=== PATIENT | male | born 1950 | race Caucasian/White ===

== ENCOUNTER 2023-10-07 09:08 | Outpatient (CLI) | payer OTHER, MEDICARE, BC ==
[2023-10-07 10:22] LABS: FREE T4 (FREE THYROXINE) 0.87 NG/DL (0.73-1.40); THYROID STIMULATING HORMONE 2.1 ulU/ml (0.34-4.50)
== END 2023-10-07 23:59 | disposition home or self-care (01) ==
LOC: RAD 09:08
PROVIDERS: ATTEND Chiropractor
DX: E03.9 Hypothyroidism, unspecified (principal)
CPT/HCPCS: 36415; 84439; 84443; 84481

== ENCOUNTER 2024-05-18 11:59 | Day surgery (SDC) | payer OTHER, MEDICARE, BC ==
[2024-05-18] VITALS (12 sets, daily range): BP systolic 119–130; BP diastolic 53–77; PULSE 53–59; RESP 16; TEMP 98.3; O2SAT 95–99
[~2024-05-18] VITALS: Ht 170.2 cm; Wt 90.4 kg
[2024-05-18] MEDS ORDERED: LEVO100T9 PO (12:41)
[2024-05-18] MEDS ORDERED: LABE300T4 PO ×2 (12:41→12:50)
[2024-05-18] MEDS ORDERED: NALO4SPR22 (12:41)
[2024-05-18] MEDS ORDERED: LISI40TA13 PO (12:41)
[2024-05-18] MEDS ORDERED: LYR75C PO (12:41)
[2024-05-18] MEDS ORDERED: OMEP40CA21 PO (12:41)
[2024-05-18] MEDS ORDERED: AMLO10TA PO (12:50)
[2024-05-18] MEDS ORDERED: HYDRALAZINE HCL PO (12:50)
[2024-05-18] MEDS ORDERED: HYDR-3972 PO (12:50)
[2024-05-18] MEDS ORDERED: ASPI-1265 PO (12:50)
[2024-05-18] MEDS ORDERED: ATOR20TA PO (12:50)
[2024-05-18] MEDS ORDERED: FURO-150 PO (12:50)
[2024-05-18] MEDS ORDERED: FERR-28 PO (12:50)
[2024-05-18] MEDS ORDERED: CYAN-116 (12:50)
[2024-05-18] MEDS: normal saline 1000ml 1,000 ML IV SCH (14:13)
[2024-05-18] MEDS: fentaNYL/PF 50MCG/1 ML 2ML syringe IV ONE (14:14)
[2024-05-18] MEDS: MIDAZolam 1mg/ml 10ml vial IV ONE (14:14)
== END 2024-05-18 14:20 | disposition home or self-care (01) ==
LOC: SSTAY O 11:59 → EDSTATUS 14:30
PROVIDERS: ATTEND Student in an Organized Health Care Education/Training Program
DX: I35.1 Nonrheumatic aortic (valve) insufficiency (principal); I25.10 Atherosclerotic heart disease of native coronary artery without angina pectoris; I12.9 Hypertensive chronic kidney disease with stage 1 through stage 4 chronic kidney disease, or unspecified chronic kidney disease; N18.9 Chronic kidney disease, unspecified; E03.9 Hypothyroidism, unspecified; Z85.46 Personal history of malignant neoplasm of prostate; Z79.82 Long term (current) use of aspirin; Z79.899 Other long term (current) drug therapy; Z95.5 Presence of coronary angioplasty implant and graft
CPT/HCPCS: 93312; 93325; J2250; J3010; J7030

== ENCOUNTER 2024-09-23 08:31 | Outpatient (CLI) | payer OTHER, MEDICARE, BC ==
[~2024-09-23] VITALS: Ht 163.2 cm; Wt 88.0 kg
[~2024-09-23 08:31] MED LIST: AMLO10TA PO; ASPI-1265 PO; ATOR20TA PO; CYAN-116; FERR-28 PO; FURO-150 PO; HYDR-3972 PO; HYDRALAZINE HCL PO; LABE300T4 PO; LEVO100T9 PO; LISI40TA20 PO; LYR75C PO; NALO4SPR22; OMEP40CA21 PO
[2024-09-23 08:59] LABS: ABG BASE EXCESS -3.2 mmol/L (-2.0-3.0); ABG HCO3 21.5 mmol/L (21.0-28.0); ABG OXYGEN SATURATION 94.2 % (94.0-98.0); ABG PCO2 (T) 37.6 mmHg (35.0-48.0); ABG PH (T) 7.375 (7.350-7.450); ABG PO2 (T) 72.9 mmHg (83.0-108.0); ALLEN'S TEST POSITIVE; FCOHb 0.3 % (0.5-1.5); FHHb 5.8 % (0.0-5.0); FIO2 21.0 mmHg/%; FMetHb 0.3 % (0.0-1.5); FO2Hb 93.6 % (94.0-98.0); MODE ROOM AIR; PATIENT TEMPERATURE 37.0; TOTAL HEMOGLOBIN 13.0 G/dl (13.5-17.5)
[2024-09-23] MEDS ORDERED: albuterol 2.5 MG/3 ML nebule NEB ONE (09:15)
[2024-09-23 09:47] VITALS: PULSE 53; RESP 16; O2SAT 95
--- NOTE | 2024-09-24 14:15 | PROCEDURE NOTE - Respiratory ---
Procedure Note-Respiratory Providers to Copies To 1: HANANE CHASE MD Procedure Name: This is a complete pulmonary function study dated September 23, 2024. Hemoglobin measurement was done as part of the study. A room air blood gas was also obtained from this patient on the same date. Spirometry measurements: The forced vital capacity is at the lower limit of normal. The FEV1 is in the normal range. The FEV1 ratio is slightly elevated. All of the measured flow rates are normal. Bronchodilator was not administered as part of the study. Lung volume measurements: All of the major lung volume determinations are normal. Lung diffusion measurement: The DLCO measurement is in the lower range of normal. It is noted that the hemoglobin measurement is normal. Airway resistance measurement: The airway resistance shows no elevation. Conclusion: Normal pulmonary function study. We have no previous studies for comparison. A blood gas was drawn from this patient while the patient was breathing room air. The blood pH is normal. The pCO2 is normal. There is mild reduction in the room air oxygen level at 72 mmHg. GABE LOPEZ MD Sep 24, 2024 14:15
== END 2024-09-23 23:59 | disposition home or self-care (01) ==
LOC: RT 08:31
PROVIDERS: ATTEND Surgery
DX: J98.4 Other disorders of lung (principal)
CPT/HCPCS: 36600; 82803; 85018; 94010; 94727; 94729; 94760

== ENCOUNTER 2024-10-22 06:03 | Inpatient (IN) | payer OTHER, MEDICARE, BC ==
[2024-10-12 11:53] LABS: MEAN PLATELET VOLUME 8.6 FL (7.4-10.4); PRE OP HEMATOCRIT 37.7 % (42.0-52.0); PRE OP HEMOGLOBIN 12.8 g/dL (14.0-17.9); PRE OP PLATELET COUNT 117 X10'3 (140-440); PRE OP WHITE BLOOD COUNT 6.3 10'3 (4.8-10.8); RED CELL DISTRIBUTION WIDTH 14.9 % (11.5-14.5)
[2024-10-12 12:04] LABS: PRE OP INR 1.1 INR; PRE OP PARTIAL THROMB. TIME 26.0 SECONDS (22-32); PRE OP PROTIME 11.0 SECONDS (9.0-12.0)
[2024-10-12 12:14] LABS: CREATININE 1.06 MG/DL (0.60-1.10); PRE OP ALT 17 U/L (30-65); PRE OP ANION GAP 6 (8-16); PRE OP AST 16 U/L (10-37); PRE OP BILIRUB, TOTAL 0.6 MG/DL (0.0-1.0); PRE OP GLUCOSE 87 MG/DL (70-104); PRE OP POTASSIUM 4.6 MMOL/L (3.4-5.1); PRE OP SODIUM 140 MMOL/L (135-145); TOTAL CARBON DIOXIDE 27.9 MMOL/L (24-32); eGFR 68 ML/MIN
--- NOTE | 2024-10-12 12:21 | RADIOLOGY REPORT ---
DI CHEST,TWO VIEWS INDICATION: PREOP TECHNIQUE: Two views of the chest COMPARISON: None FINDINGS/IMPRESSION: LUNGS: No pleural effusion, consolidation, or pneumothorax MEDIASTINUM: Mild cardiomegaly. Sternotomy wires. BONES: No acute osseous abnormality OTHER: Large sliding hiatal hernia
[~2024-10-22] VITALS: Ht 162.6 cm; Wt 86.2 kg
[~2024-10-22 06:03] MED LIST changes: +CHOL100046 PO; -CYAN-116; +DOCUMENT DATE & TIME OF BETA-BLOCKER PO ONE; -FERR-28 PO; -FURO-150 PO; -NALO4SPR22; +ceFOXitin sod/dextrose 2g/50ml 50 ML IV ONE; +ringers solution, lacted 1,000 ML IV SCH
[2024-10-22] MEDS: ceFOXitin sod/dextrose 2g/50ml 50 ML IV ONE (06:46)
[2024-10-22] MEDS: ringers solution, lacted 1,000 ML IV SCH ×2 (06:46→18:50)
[2024-10-22] MEDS: DOCUMENT DATE & TIME OF BETA-BLOCKER PO ONE (06:47)
[2024-10-22 06:52] VITALS: RESP 15; O2SAT 97
[2024-10-22] MEDS ORDERED: BUPIVAcaine 2.5mg/ml inj 50ml vial (contains preservative) ONE (06:53)
[2024-10-22 06:54] VITALS: BP 110/62; PULSE 54; RESP 15; TEMP 97.5; O2SAT 97
[2024-10-22] MEDS: HYDROcodone/acetaminophen 10/325mg tab PO ONE (11:47)
[2024-10-22 14:27] VITALS: BP 119/63; PULSE 51; RESP 15; O2SAT 97
[2024-10-22] MEDS ORDERED: midazolam 1 mg/ML 2ml injection ONE (17:12)
[2024-10-22] MEDS ORDERED: fentaNYL /PF 50mcg/ml 5ml ampule ONE ×2 (17:13→22:15)
[2024-10-22] MEDS ORDERED: rocuronium 10mg/ml inj IV ONE ×3 (17:13→20:25)
[2024-10-22] MEDS ORDERED: propofol inj 20 ML IV ONE (17:13)
[2024-10-22] MEDS ORDERED: dexamethasone sod phosphate 4mg/ml inj. ONE (17:28)
[2024-10-22] MEDS: BUPIVAcaine/PF 2.5 mg/ml (0.25%) 30ml vial IJ ONE (18:36)
[2024-10-22] MEDS ORDERED: HYDROmorphone/PF 0.2 MG/ML SYRINGE IV PRN ×2 (18:50)
[2024-10-22] MEDS ORDERED: labetalol 20mg/4ml (5mg/ml) syringe IV PRN (18:50)
[2024-10-22] MEDS ORDERED: hydrALAZINE 20mg/ml inj. IV PRN (18:50)
[2024-10-22] MEDS ORDERED: ondansetron/PF 4mg/2ml inj IV PRN (18:50)
[2024-10-22] MEDS ORDERED: acetaminophen 1,000mg/100ml IV 100 ML IV PRN (18:50)
[2024-10-22] MEDS ORDERED: acetaminophen 1,000mg/100ml IV 100 ML IV ONE (22:18)
[2024-10-22] MEDS ORDERED: albumin (Human) 5% 250ml 250 ML IV ONE (23:31)
[2024-10-22] MEDS ORDERED: glycopyrrolate 0.2mg/ml inj ONE (23:33)
--- NOTE | 2024-10-22 23:49 | OPERATIVE REPORT ---
Operative Report Providers to CC ~ Date of Procedure: Oct 22, 2024 Pre-Operative Diagnosis: type III hiatsl hernia Post-Operative Diagnosis SAME as PRE-Op Procedure Performed attempted robo repair hiatal hernia with conversion to open repair/g tube placement Surgeon: kylie rojo Anesthesiologist: Shiva Bernal Type of Anesthesia: General Findings: large hiatal hernia Estimated Blood Loss: 100 ml Specimen Removed: none HANANE CHASE MD Oct 22, 2024 23:49
[2024-10-22 23:57] VITALS: BP 127/84; PULSE 77; RESP 16; O2SAT 98
[2024-10-23] VITALS (31 sets, daily range): BP systolic 115–159; BP diastolic 61–88; PULSE 68–141; RESP 13–22; TEMP 97.9–98.6; O2SAT 92–98
[2024-10-23] MEDS ORDERED: ondansetron/PF 4mg/2ml inj ONE (00:07)
[2024-10-23] MEDS ORDERED: HYDROmorphone inj. 0.5 MG/0.5 ML DISP.SYRIN IV PRN (00:15)
[2024-10-23] MEDS: morphine 4 MG/ML inj SYRINge IV PRN (00:23)
[2024-10-23] MEDS: ceFOXitin 2GM-NS 100mL ADDvant 100 ML IV SCH (02:00)
--- NOTE | 2024-10-23 02:12 | RADIOLOGY REPORT ---
CHEST RADIOGRAPH Indication: POST-OP Technique: Single frontal view of the chest was obtained COMPARISON: DI CHEST,TWO VIEWS on DOS: 10/12/24 FINDINGS: Lines and Tubes: None Lungs: Increased prominence of the pulmonary vasculature. No focal consolidation. Pleura: No effusion. No pneumothorax. Cardiomediastinal contours: Cardiomegaly status post median sternotomy. Bones: Unremarkable IMPRESSION: 1. Cardiomegaly and diffuse increased prominence of the pulmonary vasculature.
[2024-10-23] MEDS: CEFOXITIN IV ONE (03:00)
[2024-10-23] MEDS: D5W IV ONE (03:00)
[2024-10-23] MEDS: HYDROmorphone inj. 0.5 MG/0.5 ML DISP.SYRIN IV PRN (03:30)
[2024-10-23 05:56] LABS: MEAN PLATELET VOLUME 9.2 FL (7.4-10.4); RED CELL DISTRIBUTION WIDTH 14.6 % (11.5-14.5)
[2024-10-23 06:03] LABS: CREATININE 1.95 MG/DL (0.60-1.10); PHOSPHORUS 4.7 MG/DL (2.3-4.5); TOTAL CARBON DIOXIDE 27.1 MMOL/L (24-32); eCRCL 27 ML/MIN; eGFR 34 ML/MIN
--- NOTE | 2024-10-23 06:40 | RADIOLOGY REPORT ---
EXAM: DI CHEST,SINGLE VIEW HISTORY: ptx COMPARISON: DI CHEST,SINGLE VIEW on DOS: 10/23/24, DI CHEST,TWO VIEWS on DOS: 10/12/24 TECHNIQUE: Portable upright AP view of the chest was performed. FINDINGS: There are mild bilateral lung base infiltrates and/or effusions. No pneumothorax. The heart is not en larged. There are Postoperative changes of median sternotomy. IMPRESSION: 1. Mild bilateral lung base infiltrates and/or effusions. This appearance may be due to atelectasis, CHF, and/or pneumonia. 2. Cardiomegaly and postoperative changes of the heart.
[2024-10-23] MEDS ORDERED: pantoprazole 40MG/NS 100ML BAG 100 ML IV SCH (08:00)
[2024-10-23] MEDS: ceFOXitin sod/dextrose 2g/50ml 50 ML IV SCH ×2 (08:40→16:26)
--- NOTE | 2024-10-23 08:46 | OPERATIVE REPORT ---
DATE OF SURGERY: 10/22/2024 DICTATING PHYSICIAN: Tulio Mohan MD PREOPERATIVE DIAGNOSIS: Type 2 hiatal hernia. POSTOPERATIVE DIAGNOSIS: Type 2 hiatal hernia. PROCEDURES PERFORMED: * Attempted robotic repair of large hiatal hernia with subsequent conversion to open. * G-tube placement. SURGEON: Tulio Mohan MD BOBBIN DOFFER: None. ANESTHESIA: General/Dr. Bernal. DRAINS: None. INDICATIONS FOR OPERATION: The patient is a 74-year-old male with large and symptomatic hiatal hernia. The stomach was up in the chest. The patient is taken to surgery for repair. INTRAOPERATIVE FINDINGS: The patient had an extremely large hiatal hernia with very redundant sac. After mobilization out of the sac out of the chest with a great deal of difficulty, it is unclear where the sac and esophagus stopped and started, so a decision was made for open repair. At the time of repair, the patient had a large sac which obscured the posterior portion of the left isacc. With open approach, the left was identified. G-tube was placed at the end of the procedure to confirm adequate reduction. DESCRIPTION OF PROCEDURE: The patient was placed supine on the operating room table. After induction of general anesthesia and placement of endotracheal tube, the abdomen was prepped and draped. A subumbilical incision was then made and a 12 port placed using open technique and pneumoperitoneum was begun by insufflation of CO2. Additional ports were placed in the abdomen in the usual fashion. After ports were placed, a #5 port was then placed in the left upper quadrant and retractor placed in the left lobe of the liver. Robot was then brought to the field. Camera port docked. Camera placed. Camera targeted. Two ports were then docked and instruments placed. Abdomen was explored. The patient had a large hiatal hernia, stomach in the chest. Reduction of the stomach into the abdominal cavity was quite difficult. Paraesophageal ligament was identified and peritoneum incised. The sac was mobilized out of the chest initially on the left side, approximately 1 cm left on the left isacc. Attention was then turned to the clipped and divided. Right isacc was identified. Given the large nature of the hernia and the difficulty dividing the sac on the right isacc. The sac was fully mobilized out of the chest. The esophagus was mobilized to the chest using blunt dissection. Attention was then placed around the esophagus to facilitate traction. Because of difficulty identifying the inferior portion of the left isacc as well as the difficulty with the sac, decision was made to open procedure. Pneumoperitoneum was evacuated and ports were removed. Self-retaining liver retractor was removed. retractor was placed. Esophagus was then fully mobilized and elevated from the left isacc. The left isacc was easily visualized. Sutures of pledgets were then used to reapproximate the crura. Upon completion of the repair, 1 fingertip inserted into the diaphragmatic hiatus. The abdomen was then copiously irrigated with large amount of antibiotic-containing solution. Pursestring sutures were then placed in the anterior wall of the stomach. G-tube was placed to the left upper quadrant and the pursestring sutures in the usual fashion. The sutures were then secured and the sutures were used to some of the anterior abdominal wall. Hemostasis was found to be adequate. After irrigation was performed, rectal fascia was closed with running suture of looped PDS. Port incisions closed in layers. The skin was closed with clips. Dressing was applied. The patient was transferred to recovery in stable condition. Tulio Mohan MD TID: [id number] RECEIPT: [id number] KENAN/ELEUTERIO/KAYLYNN
[2024-10-23] MEDS ORDERED: oxyCODONE/APAP 5-325mg tablet PO PRN (14:40)
--- NOTE | 2024-10-23 15:41 | PROGRESS NOTE ---
Progress Note Dictate Providers to CC CC: TOMAS SOSA MD ~ Progress Note: Subsequent surgical care on a 74-year-old gentleman who is postoperative day 1, status post robotic assisted laparoscopic converted to open repair of very large paraesophageal hernia Tolerating clear liquids Needs additional pain medication as he takes chronic pain medication at home Complains of nasal dryness Incision dressed and dry Feeding tube site clean and dry Continue clears until tomorrow Likely full liquid diet tomorrow Change to Percocet Curry nasal spray Antibiotic Ordered?: No Objective Vitals Vital Signs Date Time Temp Pulse Resp B/P (MAP) Pulse Ox O2 Delivery O2 Flow Rate FiO2 10/23/24 15:18 14 10/23/24 07:09 97.9 81 159/80 (106) 96 Room Air 10/23/24 06:19 3.0 Lab Results: 10/23/24 0518 10/23/24 0518 Coagulation Studies Laboratory Tests Test 10/12/24 11:35 Prothrombin Time 11.0 SECONDS (9.0-12.0) INR International Normalized Ratio 1.1 INR Activated Partial Thromboplast Time 26 SECONDS (22-32) TOMAS SOSA MD Oct 23, 2024 15:41
[2024-10-23] MEDS: ringers solution, lacted 1,000 ML IV SCH (16:58)
[2024-10-23] MEDS: salt irrigation nasal spray 45 ML SPRAY NS PRN (17:54)
[2024-10-24] VITALS (10 sets, daily range): BP systolic 96–145; BP diastolic 46–76; PULSE 72–88; RESP 17–36; TEMP 97.8–98.7; O2SAT 90–95
[2024-10-24] MEDS: levoTHYROXINE 100mcg tablet PO SCH (05:18)
[2024-10-24] MEDS ORDERED: non-formulary drug (Omeprazole (Prilosec) 1 CAP) PO SCH (07:30)
[2024-10-24 09:33] LABS: MEAN PLATELET VOLUME 9.6 FL (7.4-10.4); RED CELL DISTRIBUTION WIDTH 14.6 % (11.5-14.5)
[2024-10-24 09:48] LABS: CREATININE 1.18 MG/DL (0.60-1.10); TOTAL CARBON DIOXIDE 27.2 MMOL/L (24-32); eCRCL 45 ML/MIN; eGFR 60 ML/MIN
--- NOTE | 2024-10-24 12:46 | PROGRESS NOTE ---
Progress Note Dictate Providers to CC CC: TOMAS SOSA MD ~ Progress Note: Subsequent surgical care on a 74-year-old gentleman who is postoperative day 2, status post robotic assisted laparoscopic converted to open repair of very large paraesophageal hernia Tolerating clear liquids Looks better and no complaints today Incision dressed and dry Feeding tube site clean and dry; draining into a gravity bag Discontinue gravity bag Advance to a full liquid diet Encourage ambulation Continue Madrid as it was placed by Urology due to difficulty; may need outpatient voiding challenge versus removal before home Dr. Tulio Mohan returns tomorrow Antibiotic Ordered?: N/A Objective Vitals Vital Signs Date Time Temp Pulse Resp B/P (MAP) Pulse Ox O2 Delivery O2 Flow Rate FiO2 10/24/24 11:20 36 10/24/24 10:00 82 10/24/24 06:00 98.6 127/60 (82) 90 Nasal Cannula 2.0 Lab Results: 10/24/24 0822 10/24/24 0822 Coagulation Studies Laboratory Tests Test 10/12/24 11:35 Prothrombin Time 11.0 SECONDS (9.0-12.0) INR International Normalized Ratio 1.1 INR Activated Partial Thromboplast Time 26 SECONDS (22-32) TOMAS SOSA MD Oct 24, 2024 12:46
[2024-10-25] VITALS (11 sets, daily range): BP systolic 87–141; BP diastolic 43–65; PULSE 69–88; RESP 13–24; TEMP 96.9–98.9; O2SAT 90–94
--- NOTE | 2024-10-25 14:24 | PROGRESS NOTE ---
Progress Note ID Providers to CC ~ Progress Note Progress Note: complains of pain/vss/abd-nondistended/labs noted a/p 1. s/p repair hiatal hernia-slow progress/cont supportive care HANANE CHASE MD Oct 25, 2024 14:24
[2024-10-25] MEDS: enoxaparin 40mg/0.4ml syringe SUBCUT SCH (20:00)
[2024-10-26] VITALS (9 sets, daily range): BP systolic 109–124; BP diastolic 42–66; PULSE 69–88; RESP 12–22; TEMP 97–100.3; O2SAT 91–96
[2024-10-26 06:34] LABS: MEAN PLATELET VOLUME 9.5 FL (7.4-10.4); RED CELL DISTRIBUTION WIDTH 14.5 % (11.5-14.5)
[2024-10-26 06:46] LABS: CREATININE 1.32 MG/DL (0.60-1.10); TOTAL CARBON DIOXIDE 28.8 MMOL/L (24-32); eCRCL 40 ML/MIN; eGFR 53 ML/MIN
[2024-10-26] MEDS: cefoxitin sod inj 2,000 MG in normal saline 100ml IV soln 100 ML IV SCH (10:21)
--- NOTE | 2024-10-26 16:20 | PROGRESS NOTE ---
Progress Note ID Providers to CC ~ Progress Note Progress Note: complains of pain/vss abd-incision intact/labs noted a/p s/p repair hiatal hernia-slow progress/cont supportive care HANANE CHASE MD Oct 26, 2024 16:20
[2024-10-26] MEDS: pantoprazole 40mg Tablet.DR PO SCH (19:48)
[2024-10-27] VITALS (26 sets, daily range): BP systolic 84–132; BP diastolic 48–68; PULSE 64–150; RESP 14–25; TEMP 96.1–101.6; O2SAT 92–98
[2024-10-27] MEDS: normal saline 1000ML IV soln IVB ONE (01:58)
[2024-10-27] MEDS: amiodarone 150mg/dext, iso-os 100 ML IV ONE (02:00)
[2024-10-27 02:11] LABS: RED CELL DISTRIBUTION WIDTH 14.6 % (11.5-14.5)
[2024-10-27 02:13] LABS: MEAN PLATELET VOLUME 9.2 FL (7.4-10.4)
[2024-10-27] MEDS: amiodarone/D5 360MG/200ML BAG 200 ML IV SCH (02:15)
[2024-10-27 02:27] LABS: CREATININE 1.58 MG/DL (0.60-1.10); TOTAL CARBON DIOXIDE 26.4 MMOL/L (24-32); eCRCL 33 ML/MIN; eGFR 43 ML/MIN
[2024-10-27] MEDS ORDERED: potassium Cl 20 mEq SR tablet PO PRN ×2 (03:00)
[2024-10-27] MEDS ORDERED: magnesium sulf-water 4G/100mL 100 ML IV PRN ×2 (03:00→05:25)
[2024-10-27] MEDS ORDERED: magnesium sulf-water 2g/50mL 50 ML IV PRN ×2 (03:00→05:25)
[2024-10-27] MEDS: magnesium sulf-water 4G/100mL 100 ML IV ONE (03:13)
[2024-10-27] MEDS: albumin (Human) 5% 250ml 250 ML IV SCH (03:44)
[2024-10-27] MEDS ORDERED: potassium CL 10mEq/100ml bag 100 ML IV PRN (05:25)
[2024-10-27] MEDS ORDERED: potassium Cl 40MEQ/1/2NS 520ml 520 ML IV PRN (05:25)
[2024-10-27] MEDS ORDERED: potassium Cl 40MEQ/270ML bag 250 ML IV PRN (05:25)
[2024-10-27] MEDS ORDERED: potassium Cl 20mEq/100mL bag 100 ML IV PRN (05:25)
[2024-10-27] MEDS: K and/or MAG REPLACEMENT MC SCH (08:00)
[2024-10-27] MEDS: potassium Cl 20 mEq SR tablet PO PRN (08:30)
--- NOTE | 2024-10-27 10:17 | OPERATIVE REPORT ---
DATE OF SURGERY: 10/23/2024 DICTATING PHYSICIAN: Donte Serrano MD PROCEDURE NOTE PREOPROCEDURE DIAGNOSIS: Nursing staff unable to place Madrid catheter. POSTPROCEDURE DIAGNOSES: * Bladder neck contraction. * Urethral false passage. OPERATIONS PERFORMED: * Flexible cystoscopy. * Dilation of bladder neck contraction. * Madrid catheterization, complex. SURGEON: Donte Serrano MD INDICATIONS: A 74-year-old male undergoing operative intervention by Dr. Tulio Mohan. Nursing staff was unable to place a Madrid catheter preprocedurally and I was asked urgently to present. DESCRIPTION OF PROCEDURE: Standard prep and drape of the genitals was performed. The patient had blood at the meatus, so I suspected urethral false passage. Flexible cystoscopy was therefore performed and there was a small false passage in the typical location. In addition, there was a bladder neck contraction from his prior radiation and TURP. A wire was pushed through the neck of the bladder and coiled into the bladder itself. The cystoscope was then removed. A Ramone dilator was then advanced over a wire at size 12/18-Anguillan and dilated. This was followed by a 16-Anguillan Madrid catheter with a hole cut in the tip with drainage of about 300 mL of clear yellow urine. The operative procedure was then handed over to Dr. Mohan. The patient tolerated the procedure well. Donte Serrano MD TID: [id number] RECEIPT: [id number] PF/VUN
--- NOTE | 2024-10-27 11:26 | RADIOLOGY REPORT ---
CHEST RADIOGRAPH Indication: effusion Technique: Portable upright AP view of the chest was performed. Comparison: DI CHEST,SINGLE VIEW on DOS: 10/23/24, DI CHEST,SINGLE VIEW on DOS: 10/23/24, DI CHEST,TWO VIEWS on DOS: 10/12/24, DI CHEST,SINGLE VIEW on DOS: 10/23/24 FINDINGS: There are mild bilateral lung base infiltrates and/or effusions. No pneumothorax. The heart is not en larged. There are Postoperative changes of median sternotomy. IMPRESSION: 1. Mild bilateral lung base infiltrates and/or effusions. This appearance may be due to atelectasis, CHF, and/or pneumonia. 2. Cardiomegaly and postoperative changes of the heart.
[2024-10-27] MEDS: magnesium hydroxide 30ml (MOM) UD suspension PO ONE (11:38)
--- NOTE | 2024-10-27 17:14 | PROGRESS NOTE ---
Progress Note ID Providers to CC ~ Progress Note Progress Note: pain improving/vss/abd-min distention/labs noted a/p 1. s/p repair hiatla hernia-slow progress/cont amio-pt HANANE CHASE MD Oct 27, 2024 17:14
[2024-10-28] VITALS (32 sets, daily range): BP systolic 66–140; BP diastolic 25–79; PULSE 70–148; RESP 11–24; TEMP 96.9–99.7; O2SAT 88–98
[2024-10-28] MEDS: amiodarone 150mg/dext, iso-os 100 ML IV ONE (14:08)
[2024-10-28] MEDS: amiodarone/D5 360MG/200ML BAG 200 ML IV SCH (14:26)
[2024-10-28] MEDS: magnesium citrate 296ml oral solution PO ONE (15:27)
[2024-10-28] MEDS: digoxin 250mcg/ml 2ml ampule IV ONE ×2 (15:27→20:22)
[2024-10-28] MEDS: lactose-reduced food (Ensure Enlive) - 237ml bottle PO SCH (17:05)
--- NOTE | 2024-10-28 20:31 | PROGRESS NOTE ---
Progress Note ID Providers to CC ~ Progress Note Progress Note: pain improving/vss/abd-mild distention/labs noted a/p 1. s/p repair hiatal hernia-slow progress/cont amio-add dig HANANE CHASE MD Oct 28, 2024 20:31
[2024-10-29] VITALS (17 sets, daily range): BP systolic 132–158; BP diastolic 45–69; PULSE 69–86; RESP 12–24; TEMP 97–98.2; O2SAT 90–98
[2024-10-29] MEDS: digoxin 250mcg/ml 2ml ampule IV ONE (03:14)
[2024-10-29] MEDS: digoxin 250mcg (0.25mg) tablet PO SCH (08:30)
[2024-10-29] MEDS: heparin, porcine 5000 units/ml vial SQ SCH (08:31)
[2024-10-29 17:08] LABS: MEAN PLATELET VOLUME 8.8 FL (7.4-10.4); RED CELL DISTRIBUTION WIDTH 14.5 % (11.5-14.5)
[2024-10-29 17:21] LABS: CREATININE 1.25 MG/DL (0.60-1.10); TOTAL CARBON DIOXIDE 33.4 MMOL/L (24-32); eCRCL 42 ML/MIN; eGFR 56 ML/MIN
--- NOTE | 2024-10-29 20:42 | PROGRESS NOTE ---
Progress Note ID Providers to CC ~ Progress Note Progress Note: pain improving/sr/abd disternded a/p 1. s/p hiatal hernia repair-slow progress HANANE CHASE MD Oct 29, 2024 20:42
[2024-10-30] VITALS (7 sets, daily range): BP systolic 114–127; BP diastolic 43–59; PULSE 72–80; RESP 16–25; TEMP 97–99.1; O2SAT 95–98
--- NOTE | 2024-10-30 13:04 | PROGRESS NOTE ---
Progress Note ID Providers to CC ~ Progress Note Progress Note: asleep/vss/abd nondistended/labs pending a/p 1. s/p repair hiatal hernia-slow progress 2. svt-rate controlled with amio/dig needs ct chest abd pelvis in HANANE Cummings MD Oct 30, 2024 13:04
[2024-10-30] MEDS: diatr meglu/diatrizoate 30ml oral sol.-(3 dose) bottle PO SCH (22:30)
[2024-10-31] VITALS (9 sets, daily range): BP systolic 126–155; BP diastolic 54–73; PULSE 65–85; RESP 15–18; TEMP 96.9–98.8; O2SAT 94–100
[2024-10-31 07:47] LABS: MEAN PLATELET VOLUME 8.7 FL (7.4-10.4); RED CELL DISTRIBUTION WIDTH 14.3 % (11.5-14.5)
[2024-10-31 08:46] LABS: CREATININE 1.06 MG/DL (0.60-1.10); TOTAL CARBON DIOXIDE 34.1 MMOL/L (24-32); eCRCL 50 ML/MIN; eGFR 68 ML/MIN
[2024-10-31] MEDS ORDERED: iohexol 300mg/ml 100ml inj. ONE (11:30)
--- NOTE | 2024-10-31 13:38 | RADIOLOGY REPORT ---
CT CT CHEST ABDOMEN PELVIS W/ IV ORAL CONTRAST HISTORY: pain Comparison Study: None TECHNIQUE: Multidetector CT of the chest, abdomen and pelvis was performed from lower neck to pubic s ymphysis with the use of intravenous contrast. Axial, coronal and sagittal multiplanar reformats were performed by the technologist on a separate workstation. Radiation Dose : CTDI vol 28.74 mGy, DLP 2172.17 mGy*cm. Findings: Chest: Lungs: Bilateral lower lobe subsegmental atelectasis. Pleura: Trace bilateral pleural effusions. 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 Dilated pulmonary trunk and bilateral main pulmonary arteries. Severe coronary atherosclerosis versus stents. Mediastinum: Free fluid in the posterior mediastinum along the midesophagus. Soft tissues/Bones: Unremarkable Abdomen: Liver: Mild biliary ductal dilatation. Gallbladder: Cholecystectomy. Spleen: Unremarkable. Perisplenic free fluid. Pancreas: Unremarkable Adrenals: Unremarkable Kidneys: Unremarkable GI tract: Percutaneous gastrostomy tube terminates in the stomach. Mild inflammatory changes anterior to the stomach, just to the right of midline (axial images 20-43). : The urinary bladder is decompressed via Madrid catheter. Vasculature: Widespread aortic dissection. The bilateral renal, celiac, SMA, and JAMILA are supplied by the true lumen. Mild aortoiliac atherosclerosis. Lymphadenopathy: Absent Peritoneum: No ascites Musculoskeletal: Mild multilevel degenerative changes of the thoracolumbar spine. Soft tissues: Small left fat containing inguinal hernia. Unremarkable Impression: Chest: 1. 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 2. Paraesophageal free fluid, nonspecific. Abdomen: 1. Abdominal aortic dissection. The branches of the aorta are supplied by the true lumen. 2. Mild inflammatory changes anterior to the stomach, to the right of midline, may reflect a possible leak from the gastrostomy tube. No definite oral contrast within the fluid collection. An omental in farct is also in the differential. 3. Perisplenic free fluid, nonspecific. Critical Result: Aortic Dissection Findings discussed with Dr. Mohan at 10/31/2024 01:31 PM, and acknowledged receipt and understandin g of the findings.
[2024-10-31] MEDS: piperacillin/tazo 3.375gm/50ml 50 ML IV SCH (16:00)
--- NOTE | 2024-10-31 16:53 | PROGRESS NOTE ---
Progress Note ID Providers to CC ~ Progress Note Progress Note: Cardiothoracic surgery note Mr. Purdy is known to me. He is a very nice 74-year-old gentleman who is now 12 years status post repair of a type a aortic dissection. The graft was taken to the level of the innominate. He did well postoperatively and ask actually continued to do so. He denies any abdominal chest or back pain. He was in the hospital now for repair of a paraesophageal hernia. As part of his postoperative care he underwent a CT of the chest abdomen and pelvis. 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 His great vessels as well as his abdominal vessels all arise from the true lumen. The maximum transverse diameter is at the level of the innominate where it is approximately 5 cm. This has not significantly different from postoperative. His risk factors include hypertension. However given his asymptomatic nature as well as no evidence of distal ischemic issues, we do not recommend any intervention into this problem. We will continue to following with yearly CT scans. If he develops in the distal problems such as leg work GI ischemia or if his on replaced arch or descending thoracic aorta increase in size he may be referred for stent graft repair. Please refer him back to our of [facility] in approximately six months for further discussion and scheduling for his yearly CT. TOMASZ AUGUSTE III, MD Oct 31, 2024 16:53
--- NOTE | 2024-10-31 17:08 | PROGRESS NOTE ---
Progress Note ID Providers to CC ~ Progress Note Progress Note: pain improving/vss/abd-min distention/labs noted/ct reviewed and discussed with Dr. Alvarez a/p 1. s/p repair hiatal hernia-slow progress/dc planning-cont pt HANANE CHASE MD Oct 31, 2024 17:08
[2024-11-01] VITALS (12 sets, daily range): BP systolic 107–143; BP diastolic 43–61; PULSE 69–89; RESP 14–20; TEMP 97.2–99.1; O2SAT 92–100
[2024-11-01 11:18] LABS: MEAN PLATELET VOLUME 7.7 FL (7.4-10.4); RED CELL DISTRIBUTION WIDTH 14.7 % (11.5-14.5)
--- NOTE | 2024-11-01 15:09 | PROGRESS NOTE ---
Progress Note ID Providers to CC ~ Progress Note Progress Note: doing well/rehab friday HANANE CHASE MD Nov 01, 2024 15:09
[2024-11-02] VITALS (7 sets, daily range): BP systolic 95–128; BP diastolic 41–54; PULSE 61–90; RESP 13–18; TEMP 97.3–99.3; O2SAT 92–97
[2024-11-02 11:24] LABS: MEAN PLATELET VOLUME 8.7 FL (7.4-10.4); RED CELL DISTRIBUTION WIDTH 14.6 % (11.5-14.5)
[2024-11-02 12:07] LABS: BANDS% (MANUAL) 1.0 % (0-10); EOSINOPHILS % (MANUAL) 3.0 % (0-6); LYMPHOCYTES % (MANUAL) 6.0 % (21-51); METAMYLEOCYTES% (MANUAL) 5.0 % (0-0); MONOCYTES % (MANUAL) 7.0 % (2-12); NEUTROPHILS % (MANUAL) 78.0 % (42-75); PLATELET ESTIMATE NORMAL
[2024-11-02 12:33] LABS: UA COLLECTION TYPE FOLEY CATH
[2024-11-02 12:42] LABS: SQUAMOUS EPITHELIAL CELL,UR NONE SEEN /LPF (FEW)
--- NOTE | 2024-11-02 14:49 | RADIOLOGY REPORT ---
CHEST RADIOGRAPH Indication: right picc placement Technique: Single frontal view of the chest was obtained COMPARISON: DI CHEST,SINGLE VIEW on DOS: 10/27/24, DI CHEST,SINGLE VIEW on DOS: 10/23/24, DI CHEST,SINGLE VIEW on DOS: 10/23/24, DI CHEST,TWO VIEWS on DOS: 10/12/24 FINDINGS: Lines and Tubes: Right PICC in satisfactory position. Median sternotomy. Lungs: Congestion Pleura: No effusion. No pneumothorax. Cardiomediastinal contours: Cardiomegaly Bones: Unremarkable IMPRESSION: Increased interstital prominence. This may represent pulmonary vascular congestion and/or viral pneumonia. Clinical correlation advised.
--- NOTE | 2024-11-02 19:45 | PROGRESS NOTE ---
Progress Note ID Providers to CC ~ Progress Note Progress Note: pain ikmproving/vss/abd-min distention/labs noted a/p 1. s/p repair hiatal hernia-slow progress/rehab today HANANE CHASE MD Nov 02, 2024 19:45
== END 2024-11-02 17:55 | DRG 328 ==
LOC: PAS 06:03 → PCU 3S 10-23 00:59
PROVIDERS: ADMIT Surgery; ATTEND Surgery
PROC: 0BJT4ZZ Inspection of Diaphragm, Percutaneous Endoscopic Approach (ICD-10-PCS; 2024-10-22)
PROC: 8E0W4CZ Robotic Assisted Procedure of Trunk Region, Percutaneous Endoscopic Approach (ICD-10-PCS; 2024-10-22)
PROC: 0DH63UZ Insertion of Feeding Device into Stomach, Percutaneous Approach (ICD-10-PCS; 2024-10-22)
PROC: 0BQT0ZZ Repair Diaphragm, Open Approach (ICD-10-PCS; principal; 2024-10-22 17:06)
PROC: 0T7C8ZZ Dilation of Bladder Neck, Via Natural or Artificial Opening Endoscopic (ICD-10-PCS; 2024-10-23)
PROC: 0T9B80Z Drainage of Bladder with Drainage Device, Via Natural or Artificial Opening Endoscopic (ICD-10-PCS; 2024-10-23)
PROC: 5A09357 Assistance with Respiratory Ventilation, Less than 24 Consecutive Hours, Continuous Positive Airway Pressure (ICD-10-PCS; 2024-10-24)
PROC: 5A09357 Assistance with Respiratory Ventilation, Less than 24 Consecutive Hours, Continuous Positive Airway Pressure (ICD-10-PCS; 2024-10-26)
PROC: 5A0935A Assistance with Respiratory Ventilation, Less than 24 Consecutive Hours, High Flow/Velocity Cannula (ICD-10-PCS; 2024-10-26)
PROC: 5A0935A Assistance with Respiratory Ventilation, Less than 24 Consecutive Hours, High Flow/Velocity Cannula (ICD-10-PCS; 2024-10-28)
PROC: 05HY33Z Insertion of Infusion Device into Upper Vein, Percutaneous Approach (ICD-10-PCS; 2024-10-28)
PROC: B54MZZA Ultrasonography of Right Upper Extremity Veins, Guidance (ICD-10-PCS; 2024-10-28)
PROC: 5A0935A Assistance with Respiratory Ventilation, Less than 24 Consecutive Hours, High Flow/Velocity Cannula (ICD-10-PCS; 2024-10-29)
PROC: 5A0935A Assistance with Respiratory Ventilation, Less than 24 Consecutive Hours, High Flow/Velocity Cannula (ICD-10-PCS; 2024-10-30)
PROC: BW251ZZ Computerized Tomography (CT Scan) of Chest, Abdomen and Pelvis using Low Osmolar Contrast (ICD-10-PCS; 2024-10-31)
DX: K44.9 Diaphragmatic hernia without obstruction or gangrene (principal); N36.5 Urethral false passage; Z92.3 Personal history of irradiation; Z53.31 Laparoscopic surgical procedure converted to open procedure
CPT/HCPCS: 36415; 36569; 71045; 71046; 71260; 74177; 76942; 80048; 80053; 80162; 81001; 82948; 83605; 83735; 84100; 84132; 84443; 85007; 85025; 85610; 85730; 86885; 86900; 86901; 87040; 87081; 87088; 94660; 94668; 94760; 97116; 97161; 97530; A4215; A4314; A4615; A4618; A4620; A5200; A6253; A6258; A6449; A6590; B4087; C1751; C1758; C1781; G0378; J0131; J0282; J0690; J0694; J1100; J1160; J1171; J1644; J1650; J1938; J2250; J2270; J2405; J2470; J2543; J2704; J2710; J3010; J3475; J3490; J7040; J7120; J7121; P9045; Q9963; Q9967

== ENCOUNTER 2024-11-18 13:22 | Inpatient (IN) | payer OTHER, MEDICARE, BC ==
[~2024-11-18] VITALS: Ht 175.3 cm; Wt 79.1 kg
[~2024-11-18 13:22] MED LIST changes: -DOCUMENT DATE & TIME OF BETA-BLOCKER PO ONE; -ceFOXitin sod/dextrose 2g/50ml 50 ML IV ONE; -ringers solution, lacted 1,000 ML IV SCH
[2024-11-18 14:16] LABS: INR 1.1 INR
[2024-11-18 14:17] LABS: MEAN PLATELET VOLUME 7.6 FL (7.4-10.4); RED CELL DISTRIBUTION WIDTH 17.6 % (11.5-14.5)
[2024-11-18 14:19] LABS: CREATININE 1.08 MG/DL (0.60-1.10); ETHANOL < 10 MG/DL (<10); TOTAL CARBON DIOXIDE 31.4 MMOL/L (24-32); eCRCL 58 ML/MIN; eGFR 66 ML/MIN
[2024-11-18 14:26] LABS: LACTIC SEPSIS 2.1 MMOL/L (0.4-2.0)
[2024-11-18 14:27] LABS: LEUKOCYTE ESTERASE ,URINE MODERATE (Neg); NITRITES, URINE POSITIVE (Neg); OCCULT BLOOD,URINE MODERATE (Neg)
[2024-11-18 14:33] LABS: UA COLLECTION TYPE FOLEY CATH
[2024-11-18 14:35] LABS: SQUAMOUS EPITHELIAL CELL,UR FEW /LPF (FEW)
[2024-11-18 14:36] LABS: WBC CLUMPS,URINE FEW /HPF (NEGATIVE)
[2024-11-18 14:39] LABS: YEAST MODERATE /HPF (NEGATIVE)
--- NOTE | 2024-11-18 15:28 | Physician Documentation ---
History of Present Illness ~ Chief Complaint: ALOC Stated Complaint: ALTERED Time Seen by MD: 13:25 OK to notify your PCP?: Yes Source: patient, family Mode of Arrival: EMS, Stretcher Exam Limitations: other HPI Mr. Purdy is a 74 y/o male who presents to the ED for evaluation of an AMS. He was recently admitted to the hospital for repair of a large paraesophageal hernia. It was initially planned for Robotic approach but this was converted to open. He was discharged to the rehab with a RUE PICC line for ongoing antibiotics. He was sent here from the rehab to be evaluated for altered mental status. No report of trauma. He arrives today confused, but is able to answer basic questions. He cannot explain why he was sent here. is at bedside providing additional details. Medication Reconciliation Allergies: Coded Allergies: No Known Allergies (Unverified , 11/18/24) Scheduled Amlodipine Besylate (Amlodipine Besylate), 1 TABLET PO DAILY@1000, (Reported) Aspirin (Aspirin), 81 MG PO DAILY, (Reported) Atorvastatin Calcium* (Lipitor*), 1 TABLET PO HS, (Reported) Cholecalciferol (Vitamin D3) (Vitamin D3), 6,000 UNITS PO DAILY, (Reported) Labetalol Hcl (Labetalol Hcl), 1 TAB PO TID, (Reported) Levothyroxine Sodium (Levothyroxine Sodium), 1 TAB PO DAILY@0500, (Reported) Lisinopril* (Lisinopril*), 1 TAB PO DAILY@1000, (Reported) Omeprazole (Prilosec), 1 CAP PO BKF, (Reported) Pregabalin (LYRICA capsule), 2 CAP PO Q12H, (Reported) [Hydralazine Hcl], 10 MG PO QID, (Reported) Scheduled PRN Hydrocodone Bit/Acetaminophen (Hydrocodon-Acetaminophn 10-325 tablet), 1 TAB PO TID PRN for pain, (Reported) Physical Exam Vital Signs: Temperature: 100.8, Source: Oral, Heart Rate: 86, Respiratory Rate: 18, BP: 127/62, Pulse Oximetry: 94, Weight: 79.090 Oxygen Flow Rate: 2.0 Progress Results/Orders Results/Orders Orders - YEISON ARREOLA MD Cult Urine + [place] [address] (11/18/24 14:39) Ceftriaxone 2gm/D5w 50ml Bag (Rocephin 2 (11/18/24 15:25) Lactic,2hr (11/18/24 15:26) Completed Orders - YEISON ARREOLA MD BMP (11/18/24 13:41) Cbc/Diff (11/18/24 13:41) Ethanol (11/18/24 13:41) Hs Troponin I W Calculations (11/18/24 13:41) LA (11/18/24 13:41) Lipase (11/18/24 13:41) Liver Panel (11/18/24 13:41) MG (11/18/24 13:41) Pt Inr (11/18/24 13:41) Ammonia (11/18/24 13:41) Ua W/Microscopic, Cult If Ind (11/18/24 14:04) Vital Signs 11/18/24 11/18/24 11/18/24 13:29 13:40 14:38 Temp 100.8 Pulse 99 86 Resp 20 18 B/P (MAP) 129/57 127/62 (83) Pulse Ox 100 94 O2 Flow Rate 0 2.0 Laboratory Tests Test 11/18/24 13:56 11/18/24 14:04 White Blood Count 10.7 Red Blood Count 3.22 L Hemoglobin 10.0 L Hematocrit 29.6 L Mean Corpuscular Volume 92.0 Mean Corpuscular Hemoglobin 31.1 H Mean Corpuscular Hemoglobin Concent 33.8 Red Cell Distribution Width 17.6 H Platelet Count 218 Mean Platelet Volume 7.6 Neutrophils (%) (Auto) 61.2 Lymphocytes (%) (Auto) 27.5 Monocytes (%) (Auto) 10.6 Eosinophils (%) (Auto) 0.4 Basophils (%) (Auto) 0.3 Neutrophils # (Auto) 6.6 Lymphocytes # (Auto) 2.9 Monocytes # (Auto) 1.1 H Eosinophils # (Auto) 0.0 Basophils # (Auto) 0.0 CBC Comment Prothrombin Time 11.0 INR International Normalized Ratio 1.1 Coagulation Comments Sodium Level 133 L Potassium Level 4.7 Chloride Level 97 L Carbon Dioxide Level 31.4 Anion Gap 5 L Blood Urea Nitrogen 13 Creatinine 1.08 Estimated GFR/1.73 m2 66 BUN/Creatinine Ratio 12.0 Glucose Level 119 H Lactic Acid Level 2.1 H Calcium Level 8.8 Magnesium Level 2.2 Total Bilirubin 0.6 Direct Bilirubin 0.2 Aspartate Amino Transf (AST/SGOT) 22 Alanine Aminotransferase (ALT/SGPT) 21 Alkaline Phosphatase 115 Ammonia 18 Troponin I High Sensitivity 20 Total Protein 6.3 L Albumin 2.9 L Globulin 3.4 Albumin/Globulin Ratio 0.9 L Lipase 85 H Chemistry Comments Ethyl Alcohol Level < 10 Urine Specimen Description Madrid cath Urine Color Yellow Urine Clarity Cloudy Urine pH 7.5 Urine Specific [place] 1.020 Urine Protein 100 H Urine Glucose (UA) Negative Urine Ketones Negative Urine Occult Blood Moderate H Urine Nitrite Positive H Urine Bilirubin Negative Urine Urobilinogen 1.0 Urine Leukocyte Esterase Moderate H Urine RBC 20-50 Urine WBC 50-100 H Urine WBC Clumps Few Urine Squamous Epithelial Cells Few Urine Transitional Epithelial Cells Few Urine Bacteria 4+ Urine Yeast Moderate Urine Culture Indicated Indicated Volume Urine Centrifuged 10 ml Urine Comment Medical Decision Making Differential Dx:Considerations: Include: dehydration, encephalopathy, hypercalcemia, hypoglycemia, hypernatremia, hypoxia, CVA, mass lesion, subarachnoid hemorrhage, drug overdose, encephalopathy, ETOH intoxication, medication toxicity, infection - meningitis, infection - sepsis, infection - UTI, heart failure, renal failure, respiratory failure Additional Information While here in the ED, he remained hemodynamically normal with ABC's intact and in NAD. He is afebrile and nontoxic. I reviewed his EKG and it shows NSR and is without signs suggestive of acute myocardial injury or ischemia. TnI flat. UA with signs of an acute infection; culture pending. Started on IV Ceftriaxone. Lyte are unremarkable. Lactic slightly elevated at 2.1. Will admit for metabolic/sepsis-induced encephalopathy. Departure Disposition: 09 ADMITTED INPATIENT Admitted to Inpatient Unit: yes, to hospitalist Impression: Primary Impression: UTI (urinary tract infection) Condition: Stable Discharge Instructions: Altered Mental Status Referrals: NO PRIMARY CARE PROVIDER (PCP) Education Educated: Patient, Family Educated regarding: diagnosis, treatment Signature Scribe Signature: N/A Attestation: N/A YEISON ARREOLA MD Nov 18, 2024 15:28
[2024-11-18] MEDS: CefTRIAXone 2gm/D5W 50ml BAG 50 ML IV ONE (15:57)
[2024-11-18] MEDS ORDERED: morphine 4 MG/ML inj SYRINge IV PRN ×2 (16:40→20:15)
[2024-11-18] MEDS ORDERED: mag hydrox/Alum hydrox/simeth 30ml oral suspension PO PRN (16:40)
[2024-11-18] MEDS: normal saline 1000ml 1,000 ML IV SCH (16:53)
[2024-11-18] MEDS ORDERED: DIGO125T PO (16:55)
[2024-11-18] MEDS ORDERED: AMIO200T76 PO (16:59)
[2024-11-18] MEDS ORDERED: CHOL100025 PO (16:59)
[2024-11-18] MEDS ORDERED: FURO-150 PO (17:00)
--- NOTE | 2024-11-18 17:18 | ELECTROCARDIOGRAPH REPORT ---
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
[2024-11-18 17:38] LABS: PRO BRAIN NATRIURETIC PEPTIDE 292 PG/ML (0-450)
--- NOTE | 2024-11-18 18:30 | HISTORY AND PHYSICAL-Residence ---
History & Physical Providers to CC Resident Creating Document: COLLINSITZEL GARNICA, ANABEL ~ History of Present Illness Reason for Admit\Complaint: UTI History of Present Illness 74-year old male patient with past medical history hypertension, aortic dissection, hypothyroidism, sleep apnea, prostate cancer ,basal cell carcinoma presented to the ED with complaints of tremors and confusion. Patient's was present at the bedside during my examination most of the history was obtained from her as the patient was sleeping . According to his Patient was here last month for 12 days for hiatal hernia which was repaired by Dr. Mohan. He was placed on a Madrid's catheter immediately after his surgery and was Later taken to a rehab for his recovery. Patient has been having his Madrid's catheter in place for almost the past 4 weeks. Patient's reports that during his stay in the rehab, there was some issue with the Madrid's catheter, was not working, tried contacting the patient's urologist, but could not reach him. Patient was doing well until this morning when she noticed that the patient was shaky and a bit confused which was not normal for him. He had an appointment with Dr. Mohan today for removal of his beatris which were placed during his surgery. She took him to his office the morning, half of the beatris were removed, and brought him directly to the hospital from his office. Patient's also reports that the urine was foul-smelling and reddish in color. He also recorded high temperatures during his stay at the rehab for the last 2 days. She denies any other complaints of nausea, vomiting, shortness of breath, chest pain, burning micturition. Allergies: Coded Allergies: No Known Allergies (Unverified , 11/18/24) Home Medications Home Medications Active Reported Lasix* (Furosemide) 20 Mg Tablet 1 Tab PO BID Vitamin D (Cholecalciferol) 1,000 Unit Tablet 6 Tab PO DAILY 30 Days Cordarone (Amiodarone HCl) 200 Mg Tablet 200 Mg PO DAILY Lanoxin* (Digoxin) 125 Mcg Tablet 1 Tab PO DAILY 30 Days Vitamin D3 (Cholecalciferol (Vitamin D3)) 25 Mcg (1000 Unit) Capsule 6,000 Units PO DAILY Lisinopril* (Lisinopril) 40 Mg Tablet 1 Tab PO DAILY@1000 Lipitor* (Atorvastatin Calcium) 20 Mg Tablet 1 Tablet PO HS Amlodipine Besylate 10 Mg Tablet 1 Tablet PO DAILY@1000 [Hydralazine Hcl] 10 Mg PO QID Hydrocodon-Acetaminophn 10-325 tablet (Acetaminophen/Hydrocodone Bitart) 10mg- 325mg Tablet 1 Tab PO TID PRN Labetalol Hcl 300 Mg Tablet 1 Tab PO TID Levothyroxine Sodium 100 Mcg Tablet 1 Tab PO DAILY@0500 Prilosec (Omeprazole) 40 Mg Capsule 1 Cap PO BKF LYRICA capsule (Pregabalin) 75 Mg Capsule 2 Cap PO Q12H Aspirin 81 Mg Tab.chew 81 Mg PO DAILY Past Medical History Past Medical History Hypertension Aortic dissection-2012 Basal cell carcinoma-[employer] area Sleep apnea-currently on CPAP Hypothyroidism Prostate cancer-2014, underwent radiation currently in remission Past Surgical History Surgical History Comment Paraesophageal hernia Cholecystectomy TURP for prostate Past Social History Social History Comment Patient used to drink alcohol socially for 50 years, before he stopped drinking completely 5 years ago. Patient quit smoking at the age of 40, smoked for 20 years before that 1 pack per day Patient lives at home with his . 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 PCP Radha Whalen at [place] [employer] [facility]. Romelia PIMENTEL Constitutional: Reports: No headache, No chills, fever, malaise Eyes: Reports: No redness, tearing ENT: Reports: no symptoms reported Respiratory: Reports: Reports no cough, shortness of breath, wheezing Cardiovascular: Reports: Reports no chest pain Gastrointestinal: Reports: Reports no nausea , vomiting Genitourinary: Reports: No symptoms reported male Genitalia: Reports: No symptoms reported Neurological: Reports: No Symptoms reported Musculoskeletal: Reports: no symptoms reported Integumentary: Reports: no symptoms reported Allergic/Immunologic: Reports: no symptoms reported Hematologic/Lymphatic: Reports: no symptoms reported Psychiatric: Reports: no symptoms reported Exam Vitals: Vital Signs Date Time Temp Pulse Resp B/P (MAP) Pulse Ox O2 Delivery O2 Flow Rate FiO2 11/18/24 18:09 71 16 117/52 (73) 95 0 11/18/24 13:29 100.8 General: Awake , alert, and oriented x4,not in apparent distress HEENT: Atraumatic, normocephalic, EOMI, anicteric sclera. Neck: Trachea midline. Supple, full range of motion, no JVD Cardiac: Regular rhythm, regular rate with no murmurs all over the precordium. Respiratory: Normal vesicular breath sounds. No wheeze, Creps heard Gastrointestinal: Abdomen symmetric, slightly distended, patient's center of abdomen covered with a plaster due to surgery for hiatal hernia repair. Has a G-tube in place. Musculoskeletal: No extremity edema noted Neurological: Patient cooperative, Skin: Warm and dry Diagnostic Data Last Recorded Lab Results: 11/18/24 1356 11/18/24 1356 Diagnostic Data: Laboratory Tests Test 11/18/24 13:56 Prothrombin Time 11.0 SECONDS (9.0-12.0) INR International Normalized Ratio 1.1 INR Coagulation Comments Advance Care Planning Advanced Care plannin - 30 Minutes (Full code) Additional Plan Assessment-74 year old male presented to the ED with complaints of confusion and tremors since this morning. Acute metabolic encephalopathy Likely due to underlying UTI due to chronic Madrid's catheter placement Patient does not meet SIRS criteria WBC count normal-10.7, RR-18, HR- 71, TEMP-100.8 Electrolytes normal except for mild hyponatremia Glucose normal-119 Lactic acid-initially slightly increased 2.1, got back to normal- 1.4 Creatinine-1.08. Urine analysis positive for occult blood, nitrite, leukocyte esterase, RBCs20- 50, [id number], bacteria-4+ Following up with urine cultures. Patient started on ceftriaxone 1 g IV daily Patient on fluids NS 100 cc/hour. Patient was placed on Madrid's catheter after his surgery for hiatal hernia last month, due to his history of prostate cancer and multiple strictures in his bladder, it is difficult to place Madrid's in him, due to which urology will be consulted in the morning for change in his Madrid's catheter. Mild hyponatremia- Na-133 Continue to monitor his labs. Normocytic anemia- Hb-10.0, MCV-92 Follow-up with iron studies. code Status: full code Line/tube: PIV DVT prophylaxis: sq Heparin Nutrition: Regular diet PT: Yes Itzel Reddivari PGY-1 Date of Service: Nov 18, 2024 Billing Provider: CHRISTIN FUENTES MD Common Visit Codes: 23217-[id number] INP/OBS CARE (HIGH) Secondary Visit Codes: 55045-NKKOWTAY CARE PLAN 30 MINUTES REDDIVARI,ITZEL, RES Nov 18, 2024 18:30 CHRISTIN FUENTES MD Nov 20, 2024 09:47
[2024-11-18 19:25] VITALS: BP 138/61; RESP 19; TEMP 98.4; O2SAT 93
[2024-11-18 20:00] VITALS: RESP 16; O2SAT 96
[2024-11-18 20:09] LABS: CHOL/HDL RATIO 3.6 (0.00-4.99); LDL CHOLESTEROL 53 MG/DL (50-100)
[2024-11-18] MEDS ORDERED: ondansetron/PF 4mg/2ml inj IV PRN (20:19)
[2024-11-18] MEDS: morphine 4 MG/ML inj SYRINge IV PRN (20:25)
[2024-11-18 20:47] LABS: % IRON SATURATION 8 % (11-46)
[2024-11-18] MEDS: docusate sod 100mg capsule PO SCH (20:57)
[2024-11-18 22:00] VITALS: BP 134/55; PULSE 80; RESP 16; TEMP 97.9; O2SAT 96
[2024-11-19] MEDS: NYSTATIN CREAM - 30GM TUBE TP SCH
[2024-11-19] MEDS: oxyCODONE IR 5mg (immed. release) tablet PO PRN (00:59)
[2024-11-19] MEDS: levoTHYROXINE 100mcg tablet PO SCH (05:03)
[2024-11-19 05:28] LABS: MEAN PLATELET VOLUME 7.8 FL (7.4-10.4); RED CELL DISTRIBUTION WIDTH 17.0 % (11.5-14.5)
[2024-11-19 06:00] VITALS: BP 109/46; PULSE 65; RESP 15; TEMP 97.9; O2SAT 96
[2024-11-19 06:03] LABS: CREATININE 0.79 MG/DL (0.60-1.10); TOTAL CARBON DIOXIDE 30.6 MMOL/L (24-32); eCRCL 80 ML/MIN; eGFR > 90 ML/MIN
[2024-11-19] MEDS ORDERED: CHOLECALCIFEROL PO SCH (08:00)
[2024-11-19] MEDS: pantoprazole 40mg Tablet.DR PO SCH (08:45)
[2024-11-19] MEDS: cholecalciferol (vitamin D3) 1,000 unit (25mcg) tablet PO SCH (08:49)
[2024-11-19] MEDS: CefTRIAXone/D5W-Rocephin 1gm 50 ML IV SCH (08:52)
[2024-11-19 10:00] VITALS: BP 110/50; PULSE 63; RESP 18; TEMP 97; O2SAT 98
--- NOTE | 2024-11-19 12:39 | PROGRESS NOTE- Residence ---
Progress Note - Resident Providers to CC Resident Creating Document: ITZEL BAUTISTA RES ~ Antibiotic Timeout Antibiotic Ordered?: Yes Subjective Patient was seen and examined at the bedside today. He is well oriented to time place and person, not in confusion. Does not have any other complaints. No acute overnight events reported. Objective Vital Signs Date Time Temp Pulse Resp B/P (MAP) Pulse Ox O2 Delivery O2 Flow Rate FiO2 11/19/24 10:00 97.0 63 18 110/50 (70) 98 Nasal Cannula 3.0 11/18/24 20:00 21 Result Diagram: 11/19/24 0510 11/19/24 0510 Awake , alert, and oriented x4,not in apparent distress HEENT: Atraumatic, normocephalic, EOMI, anicteric sclera. Neck: Trachea midline. Supple, full range of motion, no JVD Cardiac: Regular rhythm, regular rate with no murmurs all over the precordium. Respiratory: Normal vesicular breath sounds. No wheeze, Creps heard Gastrointestinal: Abdomen symmetric, slightly distended, patient's center of abdomen covered with a plaster due to surgery for hiatal hernia repair. Has a G-tube in place. Musculoskeletal: No extremity edema noted Neurological: Patient cooperative, Skin: Warm and dry Coagulation Studies Laboratory Tests Test 11/18/24 13:56 Prothrombin Time 11.0 SECONDS (9.0-12.0) INR International Normalized Ratio 1.1 INR Coagulation Comments Plan Plan Acute metabolic encephalopathy resolved Likely due to underlying UTI -being treated with antibiotics due to chronic Madrid's catheter placement Patient does not meet SIRS criteria, sepsis ruled out WBC count normal-8.1, RR-18, HR- 63, TEMP-97.9 Electrolytes normal. Glucose normal-109 Lactic acid-initially slightly increased 2.1, got back to normal- 1.4 Creatinine-1.08. Urine analysis positive for occult blood, nitrite, leukocyte esterase, RBCs20- 50, [id number], bacteria-4+ Urine cultures grow Gram-negative rods and Gram-positive cocci, patient currently being treated with ceftriaxone 1 g IV daily. Patient on fluids NS 100 cc/hour. Needs PT evaluation. Patient was placed on Madrid's catheter after his surgery for hiatal hernia last month, due to his history of prostate cancer and multiple strictures in his bladder, it is difficult to place Madrid's in him, we spoke to Dr. Serrano urologist who will see the patient and see if Madrid's catheter replacement is required or not. Mild hyponatremia resolved Na-136 Continue to monitor his labs. Normocytic anemia- Hb-10.0, MCV-92 Iron panel shows- Fe-19, ferritin-147, [id number] anemia of chronic disease code Status: full code Line/tube: PIV DVT prophylaxis: sq Heparin Nutrition: Regular diet PT: Yes Itzel Bautista PGY-1 Date of Service: Nov 19, 2024 Billing Provider: CHRISTIN FUENTES MD Common Visit Codes: [id number] INP/OBS CARE(HIGH) ITZEL BAUTISTA, RES Nov 19, 2024 12:39 CHRISTIN FUENTES MD Nov 20, 2024 09:48
[2024-11-19 18:00] VITALS: BP 117/44; PULSE 76; RESP 16; TEMP 99; O2SAT 96
[2024-11-20 06:00] VITALS: BP 126/58; PULSE 69; RESP 18; TEMP 98.1; O2SAT 96
[2024-11-20 06:30] LABS: MEAN PLATELET VOLUME 8.3 FL (7.4-10.4); RED CELL DISTRIBUTION WIDTH 17.0 % (11.5-14.5)
[2024-11-20 06:36] LABS: CREATININE 0.79 MG/DL (0.60-1.10); TOTAL CARBON DIOXIDE 31.3 MMOL/L (24-32); eCRCL 80 ML/MIN; eGFR > 90 ML/MIN
[2024-11-20] MEDS: magnesium hydroxide 30ml (MOM) UD suspension PO PRN (09:12)
[2024-11-20 10:00] VITALS: BP 127/63; PULSE 83; RESP 15; TEMP 97.5; O2SAT 97
[2024-11-20 11:00] VITALS: RESP 12
--- NOTE | 2024-11-20 11:50 | PROGRESS NOTE ---
Progress Note ID Providers to CC ~ Progress Note Progress Note: no surgical issues-call if needed HANANE CHASE MD Nov 20, 2024 11:50
[2024-11-20] MEDS ORDERED: LEVO-65 PO (12:55)
--- NOTE | 2024-11-20 16:22 | DISCHARGE SUMMARY-Residence ---
Discharge Summary Providers to CC Resident Creating Document: ITZEL VARGAS, RES ~ Discharge Summary Admission Diagnosis: uti, encephalopathy Hospital Course DATE OF ADMISSION: 11/18/24 DATE OF DISCHARGE:11/20/24 Discharge Diagnosis\Comment: uti Operations\Procedures: None Consultants: Dr. Serrano Complications: None Condition on DC: Stable New Medications: Levofloxacin (Levofloxacin) 500 Mg Tablet 500 MG PO DAILY, #7 TAB Continued Medications: Amiodarone Hcl (Cordarone) 200 Mg Tablet 200 MG PO DAILY, TAB Amlodipine Besylate (Amlodipine Besylate) 10 Mg Tablet 1 TABLET PO DAILY@1000, TABLET Aspirin (Aspirin) 81 Mg Tab.chew 81 MG PO DAILY Atorvastatin Calcium* (Lipitor*) 20 Mg Tablet 1 TABLET PO HS Cholecalciferol (Vitamin D3) (Vitamin D3) 25 Mcg (1000 Unit) Capsule 6000 UNITS PO DAILY Digoxin* (Lanoxin*) 125 Mcg Tablet 1 TAB PO DAILY for 30 Days, #30 TAB Furosemide* (Lasix*) 20 Mg Tablet 1 TAB PO BID, TAB [Hydralazine Hcl] () 10 MG PO QID Hydrocodone Bit/Acetaminophen (Hydrocodon-Acetaminophn 10-325 tablet) 10mg- 325mg Tablet 1 TAB PO TID PRN for pain Labetalol Hcl (Labetalol Hcl) 300 Mg Tablet 1 TAB PO TID Levothyroxine Sodium (Levothyroxine Sodium) 100 Mcg Tablet 1 TAB PO DAILY@0500 Lisinopril* (Lisinopril*) 40 Mg Tablet 1 TAB PO DAILY@1000 Omeprazole (Prilosec) 40 Mg Capsule 1 CAP PO BKF Pregabalin (LYRICA capsule) 75 Mg Capsule 2 CAP PO Q12H for NERVE PAIN Discharge Summary: 74-year old male patient with past medical history hypertension, aortic diss ection, hypothyroidism, sleep apnea, prostate cancer ,basal cell carcinoma presented to the ED with complaints of tremors and confusion. . According to his Patient was here last month for 12 days for hiatal hernia which was repaired by Dr. Mohan. He was placed on a Madrid's catheter immediately after his surgery and was Later taken to a rehab for his recovery. Patient has been having his Madrid's catheter in place for almost the past 4 weeks. Patient's reports that during his stay in the rehab, there was some issue with the Madrid's catheter, was not working, tried contacting the patient's urologist, but could not reach him. Patient was doing well, when on the she noticed that the patient was shaky and a bit confused which was not normal for him. He had an appointment with Dr. Mohan on the same day for removal of his beatris which were placed during his surgery. She took him to his office the morning, half of the beatris were removed, and brought him directly to the hospital from his office. Patient's also reports that the urine was foul-smelling and reddish in color. He also recorded high temperatures during his stay at the rehab for the last 2 days Course during the hospital stay- Patient was admitted to the hospital his vitals were stable, did not meet criteria for SIRS. At the time of the examination patient was well oriented, not in confusion. All his electrolytes were normal except for mild hyponatremia. Glucose on admission was 119. Take acid initially was slightly high 2.1 later got back to normal 1.4. Creatinine was 1.08. Urine analysis was positive for occult blood, nitrite, leukocyte esterase, RBCs 20-50, WBCs 50-100, bacteria 4+ for which patient was started on ceftriaxone 1 g IV daily and fluids NS 100 cc/hour. Patient was placed on Madrid's catheter after his surgery for hiatal hernia last month, due to his history of prostate cancer and multiple strictures in his bladder it was difficult to place Madrid's in him due to which urology Dr. Mcintyre was consulted and informed about it, was asked to not replace the catheter during his hospital stay and recommended the patient to follow up outpatient at his office. His urine culture was positive for Enterobacter aerogenes and Enterococcus faecalis, according to his sensitivity results he was decided to be discharged on Levoquin . Over the course of his stay in the hospital, the patient improved significantly, was stable at the time of discharge. Laboratory Tests Test 11/18/24 20:00 11/19/24 05:10 11/20/24 00:05 11/20/24 05:00 Iron Level 19 UG/DL Total Iron Binding Capacity 230 UG/DL Percent Iron Saturation 8 % White Blood Count 8.1 X10'3 6.1 X10'3 Red Blood Count 2.80 X10'6 2.84 X10'6 Hemoglobin 8.6 g/dl 8.8 g/dl Hematocrit 26.0 % 26.1 % Mean Corpuscular Volume 92.6 FL 91.9 FL Mean Corpuscular Hemoglobin 30.8 PG 31.0 PG Mean Corpuscular Hemoglobin Concent 33.3 g/dL 33.7 g/dL Red Cell Distribution Width 17.0 % 17.0 % Platelet Count 204 X10'3 179 X10'3 Mean Platelet Volume 7.8 FL 8.3 FL Neutrophils (%) (Auto) 48.9 % 44.3 % Lymphocytes (%) (Auto) 35.9 % 39.1 % Monocytes (%) (Auto) 12.4 % 9.9 % Eosinophils (%) (Auto) 2.7 % 6.4 % Basophils (%) (Auto) 0.1 % 0.3 % Neutrophils # (Auto) 4.0 X10'3 2.7 X10'3 Lymphocytes # (Auto) 2.9 X10'3 2.4 X10'3 Monocytes # (Auto) 1.0 X10'3 0.6 X10'3 Eosinophils # (Auto) 0.2 X10'3 0.4 X10'3 Basophils # (Auto) 0.0 X10'3 0.0 X10'3 CBC Comment Sodium Level 136 MMOL/L 138 MMOL/L Potassium Level 4.3 MMOL/L 4.2 MMOL/L Chloride Level 101 MMOL/L 104 MMOL/L Carbon Dioxide Level 30.6 MMOL/L 31.3 MMOL/L Anion Gap 4 3 Blood Urea Nitrogen 11 MG/DL 7 MG/DL Creatinine 0.79 MG/DL 0.79 MG/DL Estimated GFR/1.73 m2 > 90 ML/MIN > 90 ML/MIN BUN/Creatinine Ratio 13.9 8.9 Glucose Level 109 MG/DL 103 MG/DL Calcium Level 8.5 MG/DL 8.8 MG/DL Albumin 2.6 G/DL 2.5 G/DL Chemistry Comments SARS-CoV-2 Antigen (Rapid) Negative Vital Signs Date Time Temp Pulse Resp B/P (MAP) Pulse Ox O2 Delivery O2 Flow Rate FiO2 11/20/24 10:00 97.5 83 15 127/63 (84) 97 Room Air 11/20/24 06:00 2.0 11/18/24 20:00 21 Examination findings on discharge- Awake , alert, and oriented x4,not in apparent distress HEENT: Atraumatic, normocephalic, EOMI, anicteric sclera. Neck: Trachea midline. Supple, full range of motion, no JVD Cardiac: Regular rhythm, regular rate with no murmurs all over the precordium. Respiratory: Normal vesicular breath sounds. No wheeze, Creps heard Gastrointestinal: Abdomen symmetric, slightly distended, patient's center of abdomen covered with a plaster due to surgery for hiatal hernia repair. Has a G-tube in place. Musculoskeletal: No extremity edema noted Neurological: Patient cooperative, Skin: Warm and dry Additional instructions given by the doctor during the time of discharge- Follow-up with PCP in 1 week Follow-up with urologist Dr. Serrano in 1 week in his clinic. Be compliant with the medications, the antibiotics levofloxacin given to you. In case you experience any abdominal pain, distention, burning micturition, blood in the urine please call 911 or come to the ED immediately. *Problems/Diagnosis: (1) UTI (urinary tract infection) due to urinary indwelling Madrid catheter (2) Anemia of chronic disease Total Time Spent on D/C: > 30 Minutes Date of Service: Nov 20, 2024 Billing Provider: CHRISTIN FUENTES MD Common Visit Codes: 95613-MCA/OBS DISCH DAY >30min ITZEL VARGAS, RES Nov 20, 2024 14:56 CHRISTIN FUENTES MD Nov 21, 2024 08:14
== END 2024-11-20 14:10 | disposition home health service (06) | DRG 689 ==
LOC: ER 13:23 → ED HOLD 16:42 → ORTHO 4S 19:21
PROVIDERS: ADMIT Internal Medicine; ATTEND Internal Medicine
DX: N39.0 Urinary tract infection, site not specified (principal); G93.41 Metabolic encephalopathy; E87.1 Hypo-osmolality and hyponatremia; D64.9 Anemia, unspecified; Z20.822 Contact with and (suspected) exposure to COVID-19; B95.2 Enterococcus as the cause of diseases classified elsewhere; E03.9 Hypothyroidism, unspecified; G47.30 Sleep apnea, unspecified; I10 Essential (primary) hypertension; Z85.46 Personal history of malignant neoplasm of prostate
CPT/HCPCS: 36415; 80048; 80061; 80076; 80320; 81001; 82140; 82728; 83036; 83540; 83550; 83605; 83690; 83735; 83880; 84145; 84484; 85025; 85610; 87077; 87081; 87088; 87186; 87811; 93005; 96365; 97116; 97161; 97530; 99285; A5200; A6250; G0378; J0696; J2270; J7030; J7040